=== PATIENT | male | born 1965 | race Caucasian/White ===

== ENCOUNTER 2020-08-25 05:42 | Day surgery (SDC) | payer BC, OTHER ==
[2020-08-21 15:29] VITALS: BMI 27.7
[~2020-08-25 05:42] MED LIST: HYDROmorphone 0.5 MG/0.5 ML SYRINGE IVP PRN; LACTATED RINGERS 1,000 ML IV SCH; LIDOCAINE 1% (10MG/ML) FOR IV START INTRADERMA PRN; ONDANSETRON 4 MG/2 ML VIAL IVP ONE; Pre Op ABX Message 1 EACH MISC MISCELLANE ONE
[2020-08-25 06:15] VITALS: RESP 16
[2020-08-25] MEDS ORDERED: DEXAMETHASONE SOD PHOSPHATE 10 MG/ML 1 ML VIAL IV ONE (06:25)
[2020-08-25 06:36] LABS: Glucose,Whole Blood 120 mg/dL (75-99)
[2020-08-25] MEDS ORDERED: MIDAZOLAM 2 MG/2 ML VIAL ONE (06:57)
[2020-08-25] MEDS ORDERED: fentaNYL (PF) 50 MCG/ML 2 ML AMP ONE (06:57)
[2020-08-25] MEDS ORDERED: PROPOFOL 10 MG/ML 20 ML VIAL IV ONE (06:57)
[2020-08-25] MEDS ORDERED: LIDOCAINE 1% INJ 10MG/ML (20 ML MDV) ONE (06:57)
[2020-08-25] MEDS ORDERED: BUPIVACAINE (PF) 0.5% 30 ML VIAL INTRAARTIC ONE (07:00)
[2020-08-25 07:45] VITALS: TEMP 96.9
[2020-08-25 07:51] LABS: Glucose,Whole Blood 118 mg/dL (75-99)
[2020-08-25] MEDS ORDERED: HYDROcodone/APAP 7.5-325MG 1 EACH TAB ONE (08:56)
[2020-08-25 08:59] VITALS: BP 130/79; PULSE 63
--- NOTE | 2020-08-25 09:39 | P.OP ---
Date of Procedure: 08/25/20 Preoperative Diagnosis: Torn medial meniscus right knee Postoperative Diagnosis: 1. Torn medial meniscus right knee 2. Grade 2 chondral malacia patellofemoral compartment 3. Loose bodies 4. Synovitis Procedure(s) Performed: 1. Arthroscopy of the right knee with partial medial meniscectomy (10% of the meniscus excised) 2. Chondroplasty patellofemoral compartment 3. Removal of loose bodies 4. Partial synovectomy of the medial femoral, lateral femoral, patellofemoral compartments Anesthesia: GETA Surgeon: Papito Sandy Pathology: none sent Condition: stable Disposition: PACU Indications for Procedure: This is a 55 old gentleman that presented to my office with pain in his right knee. An MRI demonstrated torn medial meniscus and after discussing the surgical and nonsurgical treatment options with him at length he wishes to proceed with arthroscopic debridement is knee and informed consent was obtained. Operative Findings: The operative findings are consistent with a torn medial meniscus, multiple intra-articular loose bodies, grade 2 chondral malacia patellofemoral compartment, and synovitis. Description of Procedure: Patient was seen and evaluated in the preoperative area, the operative site was marked with a skin marker. The patient was then brought to the operating room and given 2 g of Ancef intravenously. A general anesthetic was administered by the anesthesia department. Tourniquet was placed on the left upper thigh and the left lower extremity was then prepped and draped in usual sterile fashion. A universal timeout was then performed confirming the patient's name, surgical site, ALLERGIES, and consent. The limb was then exsanguinated and tourniquet insufflated to 250 mmHg. Standard inferior medial and inferior lateral portals were established in the knee. The trochar was inserted in the inferolateral portal. Examination began at the patellofemoral joint. There is noted to be grade 2 chondral malacia the patellofemoral compartment and a moderate amount of synovitis. There is also multiple intra-articular loose bodies. Next the medial compartment was visualized. There was a tear of the posterior horn of the medial meniscus. There was no evidence of significant chondral malacia in the mediofemoral compartment. There was multiple intra-articular loose bodies and synovitis. The notch area was then visualized and the ACL WAS intact. The Lateral compartment was then visualized and the lateral meniscus was found to be intact, there was no evidence of chondromalacia, but a mild amount of synovitis and multiple loose bodies. Next, using an arthroscopic shaver and a biter, partial medial meniscectomy was performed stable margins. Approximately 10% of meniscus was excised. A partial synovectomy is performed the medial femoral, lateral femoral, patellofemoral compartments. Chondroplasty was also performed of the medial femoral compartment of the knee. The multiple intra-articular loose bodies were removed as well. Knee was then copiously irrigated, instruments removed, incisions were closed with 4-0 nylon. 30 mL of quarter percent plain Marcaine were injected sterilely into the surgical area. A sterile dressing was then applied, and the tourniquet was released. Patient was then transferred to recovery room in stable condition.
== END 2020-08-25 10:20 | disposition home or self-care (01) ==
LOC: OR 05:42
PROVIDERS: ATTEND Orthopaedic Surgery
DX: M23.221 Derangement of posterior horn of medial meniscus due to old tear or injury, right knee (principal); M94.261 Chondromalacia, right knee; M23.41 Loose body in knee, right knee; M65.861 Other synovitis and tenosynovitis, right lower leg; M17.11 Unilateral primary osteoarthritis, right knee; E11.9 Type 2 diabetes mellitus without complications; Z87.828 Personal history of other (healed) physical injury and trauma; Z79.1 Long term (current) use of non-steroidal anti-inflammatories (NSAID); Z79.84 Long term (current) use of oral hypoglycemic drugs; Z79.899 Other long term (current) drug therapy; Z87.19 Personal history of other diseases of the digestive system; Z98.890 Other specified postprocedural states; Z79.82 Long term (current) use of aspirin; Z90.89 Acquired absence of other organs; Z83.3 Family history of diabetes mellitus
CPT/HCPCS: 29881; 29876; J2250; J1100; J0690; J2405; J2001; J3010; J2704; J1170

== ENCOUNTER → 2023-08-17 | Outpatient (CLI) | payer MEDICARE, OTHER ==
--- NOTE | 2023-08-17 16:50 | MR ---
EXAMINATION TYPE: MR shoulder RT wo con DATE OF EXAM: 08/17/2023 2:59 PM COMPARISON: NONE HISTORY: Pain in right shoulder, rotator cuff tear or rupture TECHNIQUE: Multiplanar multispin echo imaging of the right shoulder was performed. FINDINGS: Rotator cuff : There is thickening and heterogeneity of the supraspinatus tendon compatible chronic t endinopathy. Partial bursal surface tear is seen just distal to the critical zone. No evidence for fu ll-thickness retracted tear. Remaining constituents of the rotator cuff are grossly unremarkable. Bursa: No bursal effusion or thickening is seen. Musculature: There is no muscular tear, contusion, or atrophy. Acromioclavicular joint : There are moderate degenerative changes of the acromioclavicular joint. Th ere is no anterior or lateral acromial downsloping. There is subacromial spurring resulting in mild t o moderate impingement. Small amount of subacromial fluid noted. Osseous structures : There are no fractures or regions of abnormal bone marrow signal intensity. Long biceps tendon : The biceps tendon is normally situated within the bicipital groove. No complete or partial biceps tendon tear is present. Glenohumeral Joint fluid : There is no glenohumeral joint effusion. Cartilage and Bone : No focal hyaline cartilage defects are noted. No Hill-Sachs, reverse Hill-Sachs, or bony Bankart lesions are seen. Labrum : There are no SLAP or soft tissue Bankart lesions. No paralabral cysts are seen. OTHER FINDINGS : none IMPRESSION: 1. There is thickening and heterogeneity of the supraspinatus tendon compatible chronic tendinopathy. Partial bursal surface tear is seen just distal to the critical zone. No evidence for full-thickness retracted tear. 2.There is subacromial spurring resulting in mild to moderate impingement. Small amount of subacromia l fluid noted.
== END | disposition home or self-care (01) ==
LOC: RADMRIMAIN 14:00
PROVIDERS: ATTEND Orthopaedic Surgery
DX: M75.101 Unspecified rotator cuff tear or rupture of right shoulder, not specified as traumatic (principal); M25.811 Other specified joint disorders, right shoulder